=== PATIENT | female | born 1995 | race Caucasian/White ===

== ENCOUNTER 2018-10-30 09:47 | Emergency (ER) | payer MEDICAID, OTHER ==
--- NOTE | 2018-10-30 11:12 | EDPHY ---
H & P Time Seen by Provider: 10/30/18 10:12 HPI/ROS: This patient complains of URI symptoms over the past 5 days consisting of nasal congestion, mild facial pressure in the maxillary sinus region that is worse when she bends forward, sore throat 7/10 intensity worse with swallowing, myalgias and a dry cough. She attributes the dry cough postnasal drip. She reports partial improvement in her symptoms from Tylenol. No other exacerbating factors. She came in by private vehicle. ROS: Constitutional: She denies any fevers. No chills. Neuro: No headache. No confusion. No neck stiffness HEENT: Mild ear pain bilaterally. Otherwise as per HPI. Pulmonary: No shortness of breath. No pleuritic pain. No hemoptysis. Cardiovascular: No lightheadedness. GI: No nausea vomiting or diarrhea : No complaints Integumentary: No complaints or rash 7 point review of symptoms is performed and otherwise negative with exception of pertinent positives and negatives listed in HPI and ROS Smoking Status: Former smoker Physical Exam: Physical Exam Vital signs are normal. General: No acute distress HEENT: Nose: Clear discharge bilaterally. No sinus tenderness to percussion. Ears: External canals and tympanic membranes are clear with no erythema or abnormal findings bilaterally. Oropharynx: Mild erythema. No exudates. No dysphonia. No drooling or stridor. Eyes: Pupils equal and react to light. Extraocular motions are intact. Neck: Supple with no meningismus. No lymphadenopathy Lungs: Clear to auscultation bilaterally with no rales, rhonchi or wheeze. No respiratory distress. Cardiac: Regular rate and rhythm with no murmur gallop or rub Skin: No rash or pallor. Neuro: Alert with no focal deficits noted. Initial differential diagnosis: Viral pharyngitis/viral URI versus strep pharyngitis with URI Constitutional: Initial Vital Signs Temperature (C) 36.8 C 10/30/18 10:10 Heart Rate 66 10/30/18 10:10 Respiratory Rate 18 10/30/18 10:10 Blood Pressure 109/81 H 10/30/18 10:10 O2 Sat (%) 97 10/30/18 10:10 O2 Delivery Mode Room Air Allergies/Adverse Reactions: No Known Allergies Allergy (Unverified 10/30/18 10:07) Home Medications: Medication Instructions Recorded NO HOME MEDICATIONS 08/24/11 Fluticasone Nasal [Flonase Nasal 2 sprays NASAL DAILY #1 mdi 10/30/18 [place] (RX)] Mbx Soln;Maalox/Diphen/Lido 5 - 10 ml PO PRN PRN #120 ml 10/30/18 [Maalox/Diphenhydramine/Lido] MDM/Departure - MDM Diagnostics: Rapid strep is negative ED Course/Re-evaluation: Patient's presentation is consistent with viral URI. I counseled regarding this and answered all her questions. Will provide a Flonase steroid nasal spray and MD exclusion. She understands the likely improvement in her condition over the next 2-5 days will follow up with primary care physician for any ongoing symptoms. - Depart Disposition: Home, Routine, Self-Care Clinical Impression: Viral upper respiratory infection, Viral pharyngitis Condition: Good Instructions: Pharyngitis (ED), Upper Respiratory Infection (ED) Additional Instructions: Diagnosis: 1. Viral upper respiratory infection 2. Viral pharyngitis Plan: Humidifier Ibuprofen and Tylenol for discomfort MD exclusion-rinse gargle and spit in addition if needed for throat pain Flonase steroid nasal spray for nasal congestion Her symptoms should improve over the next 2-5 days with treatment plan. Follow-up with primary care physician for any ongoing symptoms despite treatment plan For return emergency department if he develops high fevers, severe headaches, vomiting or other concerns. Prescriptions: Fluticasone Nasal [Flonase Nasal [place] (RX)] 2 sprays NASAL DAILY #1 mdi Mbx Soln;Maalox/Diphen/Lido [Maalox/Diphenhydramine/Lido] 5 - 10 ml PO PRN PRN # 120 ml PRN Reason: throat pain Referrals: Doctor Not,On Staff, MD [Medical Doctor] - As per Instructions Jorge Heard MD [[facility] [place] Primary Care Provider] - As per Instructions
[2018-10-30 15:04] VITALS: BP 106/78
== END 2018-10-30 11:22 | disposition home or self-care (01) ==
LOC: CED 09:47
DX: J06.9 Acute upper respiratory infection, unspecified (principal); Z87.891 Personal history of nicotine dependence
CPT/HCPCS: 99284-ER